=== PATIENT | female | born 1960 | race Caucasian/White ===

== ENCOUNTER 2017-11-14 19:03 | Emergency (ER) | END 2017-11-14 22:31 | disposition home or self-care (01) ==

== ENCOUNTER 2017-11-15 09:45 | Emergency (ER) | END 2017-11-15 13:00 | disposition home or self-care (01) ==

== ENCOUNTER 2018-10-23 13:24 | Emergency (ER) | payer SELFPAY ==
[~2018-10-23] VITALS: Ht 160 cm; Wt 77.8 kg
[~2018-10-23 13:24] MED LIST: DIC20 PO; EPIN0.3P4 INJ; HYDR-3980 PO; PRED20TA PO
[2018-10-23 13:35] VITALS: Ht 160 cm; Wt 77.8 kg
[2018-10-23] MEDS ORDERED: FAMOTIDINE 20 MG TAB PO STA (15:39)
--- NOTE | 2018-10-23 15:41 | ERD ---
ER Documentation Chief Complaint Chief Complaint R AP, nausea, dizziness X 5 hrs, Hx gallstones HPI 57-year-old female with history of cholelithiasis, presents to the emergency department, complaining of acute onset of severe right upper quadrant abdominal pain that lasted approximately 1 hour, the pain was sharp, constant, 9 out of 10, associated with nausea and general malaise. After 1 hour, the pain resolved spontaneously. No fever, no chills, no diarrhea or constipation. Currently, the pain is 2/10. ROS All systems reviewed and are negative except as per history of present illness. Medications Home Meds Active Scripts Ciprofloxacin Hcl* (Ciprofloxacin Hcl*) 250 Mg Tablet, 250 MG PO BID, #14 TAB Prov:VIRGEN MUNOZ MD 10/23/18 Ranitidine Hcl* (Zantac*) 150 Mg Tablet, 150 MG PO BID PRN for EPIGASTRIC PAIN, #30 TAB Prov:VIRGEN MUNOZ MD 10/23/18 Ibuprofen* (Motrin*) 400 Mg Tab, 400 MG PO Q6H PRN for PAIN AND OR ELEVATED TEMP, #20 TAB Prov:VIRGEN MUNOZ MD 10/23/18 Epinephrine (Epipen 2-Bart) 0.3 Mg/0.3 Ml Pen.injctr, 1 EA INJ ONCE PRN for ALLERGIC REACTION, #1 EA Prov:MONICA LEAL DO 11/14/17 Prednisone* (Prednisone*) 20 Mg Tab, 60 MG PO DAILY for 5 Days, TAB Prov:MONICA LEAL DO 11/14/17 Dicyclomine HCl (Dicyclomine HCl) 20 Mg Tablet, 20 MG PO QID, #30 Prov:MONICA LEAL DO 11/14/17 Hydrocodone/Acetaminophen ([place] 10-325 Tablet) 1 Each Tablet, 1 TAB PO Q6H PRN for PAIN, #20 TAB Prov:MONICA LEAL DO 11/14/17 Allergies Allergies: Coded Allergies: No Known Allergy (Unverified , 11/15/17) PMhx/Soc History of Surgery: Yes (HYSTERECTOMY) Anesthesia Reaction: No Hx Neurological Disorder: No Hx Respiratory Disorders: No Hx Cardiac Disorders: No Hx Psychiatric Problems: No Hx Miscellaneous Medical Probl: No Hx Alcohol Use: No Hx Substance Use: No Hx Tobacco Use: No FmHx Family History: No diabetes, No coronary disease Physical Exam Vitals Vital Signs Date Temp Pulse Resp B/P (MAP) Pulse Ox O2 O2 Flow FiO2 Time Delivery Rate 10/23/18 97.2 61 18 124/60 99 13:35 (81) Physical Exam Patient alert, oriented, vital signs stable. HEAD: Normocephalic, atraumatic. EYES: PERRLA, EOMI, Sclera and conjunctiva appear normal. NOSE: Clear and patent nostrils. EARS: Canals clear, tympanic membranes WNL. MOUTH: normal lips and tongue, no oral lesions. THROAT: Normal oropharynx, no tonsillar exudates. NECK: Supple, No lymphadenopathy. Full ROM without pain or tenderness. HEART: RRR, no rubs, murmurs, clicks or gallops. LUNGS: Clear to auscultation. ABDOMEN: Soft, non-tender without masses or hepatosplenomegaly. EXTREMITIES: No edema bilaterally. BACK: Full ROM, no deformity, normal back exam NEURO: Cranial nerves grossly intact, no motor or sensory deficit SKIN: No rashes, no petechia. Result Diagram: 10/23/18 1556 10/23/18 1556 Results 24 hrs Laboratory Tests Test 10/23/18 15:56 White Blood Count 6.9 10^3/ul Red Blood Count 4.15 10^6/ul Hemoglobin 12.3 g/dl Hematocrit 38.0 % Mean Corpuscular Volume 91.6 fl Mean Corpuscular Hemoglobin 29.6 pg Mean Corpuscular Hemoglobin Concent 32.4 g/dl Red Cell Distribution Width 12.7 % Platelet Count 260 10^3/UL Mean Platelet Volume 11.0 fl Immature Granulocytes % 0.300 % Neutrophils % 57.0 % Lymphocytes % 32.7 % Monocytes % 8.3 % Eosinophils % 1.3 % Basophils % 0.4 % Nucleated Red Blood Cells % 0.0 /100WBC Immature Granulocytes # 0.020 10^3/ul Neutrophils # 3.9 10^3/ul Lymphocytes # 2.2 10^3/ul Monocytes # 0.6 10^3/ul Eosinophils # 0.1 10^3/ul Basophils # 0.0 10^3/ul Nucleated Red Blood Cells # 0.0 10^3/ul Urine Color YELLOW Urine Clarity SLIGHTLY CLOUDY Urine pH 6.0 Urine Specific [place] 1.015 Urine Ketones NEGATIVE mg/dL Urine Nitrite NEGATIVE mg/dL Urine Bilirubin NEGATIVE mg/dL Urine Urobilinogen 1+ mg/dL Urine Leukocyte Esterase 1+ Pamela/ul Urine Microscopic RBC 5 /HPF Urine Microscopic WBC 4 /HPF Urine Squamous Epithelial Cells FEW /HPF Urine Bacteria FEW /HPF Urine Mucus MANY /HPF Urine Hemoglobin 1+ mg/dL Urine Glucose NEGATIVE mg/dL Urine Total Protein NEGATIVE mg/dl Sodium Level 137 mmol/L Potassium Level 4.2 mmol/L Chloride Level 99 mmol/L Carbon Dioxide Level 32 mmol/L Anion Gap 6 Blood Urea Nitrogen 15 mg/dl Creatinine 0.64 mg/dl Est Glomerular Filtrat Rate mL/min > 60 mL/min Glucose Level 114 mg/dl Calcium Level 9.2 mg/dl Total Bilirubin 0.2 mg/dl Direct Bilirubin 0.00 mg/dl Indirect Bilirubin 0.2 mg/dl Aspartate Amino Transf (AST/SGOT) 457 IU/L Alanine Aminotransferase (ALT/SGPT) 268 IU/L Alkaline Phosphatase 147 IU/L Total Protein 7.8 g/dl Albumin 4.3 g/dl Globulin 3.50 g/dl Albumin/Globulin Ratio 1.22 Lipase 282 U/L Serum HCG, Qualitative NEGATIVE Current Medications Medications Dose Sig/Amador Start Time Status Last (Trade) Ordered Route PRN Stop Time Admin Dose Reason Admin Famotidine 20 mg ONCE STAT 10/23/18 DC 10/23/18 (Pepcid) PO 15:39 10/23/18 15:54 15:48 650 mg ONCE ONCE 10/23/18 DC 10/23/18 Acetaminophen PO 16:00 10/23/18 15:54 (Tylenol 16:01 Tab) Procedures/MDM Vital signs stable. Differential diagnosis include but not limited to: UTI, colitis, gastroenteritis, kidney stones, irritable bowel syndrome, inflammatory bowel syndrome, malabsorption syndrome, cholelithiasis, food intolerance, medication side effect, pancreatitis, diverticulitis, bowel obstruction. Physical examination and clinical presentation consistent most likely with biliary colic, no evidence of acute cholecystitis or choledocholithiasis. During the ED course the patient remained stable, no new complaints. Results and clinical impression discussed with the patient who agrees with management. The patient is stable to be treated outpatient and will be discharged home; some side effects of prescribed medications (headache, rash, nausea, vomiting, diarrhea, drowsiness, habituation, bleeding, hypertension, interactions with other medications) were reviewed. The patient was informed that the evaluation in the emergency department has been done to rule out an acute emergency, therefore, chronic conditions like malignancy or other diseases have not been evaluated; therefore, the patient was instructed to follow up with the primary care provider in the next 48h. If symptoms persist, worsen or new symptoms develop, then patient should return to the ED immediately. Instructions explained and given directly by me to the patient with acknowledgment and demonstrated understanding. Disclaimer: Inadvertent spelling and grammatical errors are likely due to EHR/dictation software use and do not reflect on the overall quality of patient care. Also, please note that the electronic time recorded on this note does not necessarily reflect the actual time of the patient encounter. Departure Diagnosis: Primary Impression: Cholecystitis Additional Impression: Urinary tract infection Condition: Stable Additional Instructions: Thank you very much for allowing us to participate in your care. Your health and safety is our top priority at [facility]. The evaluation in the emergency department has been done to rule out an acute emergency, therefore, chronic conditions like malignancy or other diseases have not been evaluated; therefore, you need to follow up with a primary care provider in the next 48h. If symptoms persist, worsen or new symptoms develop, then patient should return to the ED immediately. Call your primary care doctor TOMORROW for an appointment during the next 2-4 days and bring all the information provided. Have prescriptions filled and follow precisely the directions on the label. If the symptoms get worse and your provider is unavailable, return to the Emergency Department immediately. VIRGEN MUNOZ MD October 23, 2018 15:41
[2018-10-23] MEDS ORDERED: ACETAMINOPHEN 325 MG TAB PO ONE (16:00)
[2018-10-23] MEDS ORDERED: RANI150T35 PO (16:50)
[2018-10-23] MEDS ORDERED: IBUP-1561 PO (16:50)
[2018-10-23] MEDS ORDERED: CIPR-193 PO (16:53)
[2018-10-23 17:16] VITALS: BP 118/62; PULSE 66; RESP 18
== END 2018-10-23 17:18 | disposition home or self-care (01) ==
LOC: FTE 13:24
DX: K81.9 Cholecystitis, unspecified (principal); N39.0 Urinary tract infection, site not specified
CPT/HCPCS: 76705; 80053; 81001; 83690; 84703; 85025